=== PATIENT | male | born 1940 | race Caucasian/White ===

== ENCOUNTER 2020-04-01 10:18 | Outpatient (CLI) | payer MEDICARE, OTHER, SELFPAY ==
[2020-04-01 11:02] LABS: Blood Urea Nitrogen 28 mg/dL (9-20); Calcium 9.3 mg/dL (8.4-10.2); Carbon Dioxide 26 mmol/L (22-30); Chloride 107 mmol/L (98-107); Estimated Glomerular Filt Rate > 60; Glucose 144 mg/dL (75-110); Potassium 4.2 mmol/L (3.4-5.0); Sodium 139 mmol/L (137-145)
[2020-04-01 11:36] LABS: Hemoglobin A1C 6.2 % (<5.7)
== END 2020-04-01 10:19 | disposition home or self-care (01) ==
PROVIDERS: PCP Family Medicine; Visit Provider Family Medicine
DX: E11.9 Type 2 diabetes mellitus without complications (principal); I10 Essential (primary) hypertension
CPT/HCPCS: 36415; 80048; 83036

== ENCOUNTER 2020-05-16 09:49 | Outpatient (CLI) | payer MEDICARE, OTHER, SELFPAY | END 2020-05-16 09:50 | disposition home or self-care (01) | PROVIDERS: PCP Family Medicine | DX: C07 Malignant neoplasm of parotid gland (principal); Z08 Encounter for follow-up examination after completed treatment for malignant neoplasm; E03.2 Hypothyroidism due to medicaments and other exogenous substances | CPT/HCPCS: 36415; 84443 ==

== ENCOUNTER 2020-12-20 10:16 | Outpatient (CLI) | payer MEDICARE, OTHER, SELFPAY ==
[2020-12-20 10:49] LABS: Hematocrit 35.6 % (42.0-52.0); Hemoglobin 11.5 g/dL (14.0-18.0); Mean Corpuscular HGB Conc 32.3 g/dl (32-36); Mean Corpuscular Hemoglobin 27.1 pg (26-34); Mean Platelet Volume 8.8 fl (7.4-10.4); Platelet Count Result 174 k/mm3 (150-375); Red Blood Count 4.24 M/mm3 (4.6-6.20); White Blood Count 5.4 K/mm3 (4.5-10.0)
[2020-12-20 11:00] LABS: Alanine Aminotransferase 16 U/L (4-50); Albumin Level 3.7 g/dL (3.5-5.1); Alkaline Phosphatase 97 U/L (38-126); Anion Gap 6 mmol/L (8-16); Aspartate Amino Transferase 23 U/L (17-59); Blood Urea Nitrogen 24 mg/dL (9-20); Calcium 9.3 mg/dL (8.4-10.2); Carbon Dioxide 30 mmol/L (22-30); Chloride 106 mmol/L (98-107); Cholesterol 132 mg/dL (0-200); Estimated Glomerular Filt Rate > 60; Glucose 116 mg/dL (75-110); HDL Direct 36 mg/dL; Potassium 4.3 mmol/L (3.4-5.0); Sodium 142 mmol/L (137-145); Triglycerides 103 mg/dL (<150)
[2020-12-20 11:11] LABS: LDL Cholesterol Direct 68 mg/dL
[2020-12-20 11:23] LABS: Creatinine Urine 133.3 mg/dL
[2020-12-20 11:27] LABS: MALB Creatinine Ratio 12.6 mg/g (0-30); Microalbumin Urine Random 16.8 mg/L (0-16.7)
[2020-12-20 11:45] LABS: Hemoglobin A1C 5.9 % (<5.7)
== END 2020-12-20 10:17 | disposition home or self-care (01) ==
LOC: ANHLAB 10:21
PROVIDERS: PCP Family Medicine; Visit Provider Family Medicine
DX: E78.2 Mixed hyperlipidemia (principal); N28.9 Disorder of kidney and ureter, unspecified; I10 Essential (primary) hypertension; E11.29 Type 2 diabetes mellitus with other diabetic kidney complication
CPT/HCPCS: 36415; 80048; 80061; 80076; 82043; 83036; 84443; 85027

== ENCOUNTER 2021-02-27 10:58 | Outpatient (CLI) | payer MEDICARE, OTHER, SELFPAY ==
[2021-02-27 13:16] LABS: Prostate Specific Antigen 3.7 ng/mL (< OR = 4.0)
== END 2021-02-27 10:59 | disposition home or self-care (01) ==
PROVIDERS: PCP Family Medicine; Visit Provider Urology
DX: C61 Malignant neoplasm of prostate (principal)
CPT/HCPCS: 36415; 84153

== ENCOUNTER 2021-06-20 14:30 | Outpatient (RCR) | payer MEDICARE, OTHER, SELFPAY ==
--- NOTE | 2021-04-25 15:21 | PTOPEVAL ---
Thank you for referring Buzz Sr to [facility].? The patient is scheduled to be seen for therapy? 2 x/week for 6 weeks. Please review, sign, date and return this plan of care SKYE. I agree with and certify that the following plan of care is medically necessary. Referring Physician Date Attending Provider: See Dhaliwal MD Diagnosis osteoarthritis Onset chronic Additional Evaluation Detail He lives with his . 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 Use a cane for mobility in the house and will use a cart when at the store. Family assistance with household and yard wark. Subjective Information he reports decreased tolerance Query Text:As Reported By Patient/ with all activities, walking Family and household/yardwork activities due to pain and weakness. Reports he has severe chronic pain over his entire body. He spends most of his time at home sitting. Denies any falls in the past year. States he was moving better and performing more activities in 2019, but has had trouble standing and walking for the past 3 yrs. Previous Treatments Previous Treatments For This Problem no Pain Assessment Generalized Reported Pain Level 10 Pain Frequency Chronic Lowest Pain Intensity 10 Greatest Pain Intensity 10 Upper Extremity Range of Motion General Upper Extremity Range of Motion Gross Upper Extremity Range of Motion grossly 130 dg flex and abd Comments motion painful with all motions Lower Extremity Range of Motion General Lower Extremity Range of Motion Gross Lower Extremity Range of Motion right knee: -12-125 dg Comments left knee -10- 120 dg hip flex: 90 dg, limited by soft tissue Lower Extremity Muscle Strength Testing General Lower Extremity Strength Gross Lower Extremity Strength hip flex: 4-/5, hip abduction/ adduciton: 2+/5, hip ext: 3+/5 -full bridge with resistance knee ext: 4/5, flex: 4-/5 ( seated) Upper Extremity Muscle Strength Testing Scapular/Shoulder Left Shoulder Flexion Strength 3+ Fair + Shoulder Extension Strengt
--- NOTE | 2021-05-25 07:19 | PTOPEVAL ---
Physical Therapy Progress Note Thank you for referring Buzz Sr to [facility].?See summary below for detailed information on progress. Limited progress towards goals due to poor compliance with HEP and chronic impairments. The patient is scheduled to be seen for therapy? 1x/week for 4 weeks to progress and finalized home program.. Please review, sign, date and return this plan of care SKYE. I agree with and certify that the following plan of care is medically necessary. Referring Physician Date Attending Provider: See Dhaliwal MD Diagnosis osteoarthritis Onset chronic Additional Evaluation Detail He lives with his . 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 Use a cane for mobility in the house and will use a cart when at the store. Family assistance with household and yard wark. Subjective Information He cont to have ache pain in Query Text:As Reported By Patient/ his low back and knee pain. He Family is not consistently preforming his HEP. He does feel like he is able to walk slightly better. He was able to walk in the house without the cane for 40-50 ft. Reports the left shoulder is more ache. Pain Assessment Generalized Reported Pain Level 7 Pain Frequency Chronic Lowest Pain Intensity 6 Greatest Pain Intensity 10 Upper Extremity Range of Motion General Upper Extremity Range of Motion Gross Upper Extremity Range of Motion right and left flex 150 dg Comments and abd 140 dg motion painful with repeated movement, but not with single motion. Lower Extremity Muscle Strength Testing General Lower Extremity Strength Gross Lower Extremity Strength hip flex: 4/5, hip abduction/ adduciton: 2+/5, hip ext: 3+/5 -full bridge with resistance knee ext: 4+/5, flex: 4/5 ( seated) Upper Extremity Muscle Strength Testing Scapular/Shoulder Left Shoulder Flexion Strength 4- Good - Shoulder Abduction Strength 4- Good - Shoulder Medial Rotation Strength 4 Good Shoulder Lateral Rotation Strength 4 Good Right Shoulder Flexion Strength 3 Fair Shoulder Extension Strength 4- Good - Shoulder Abduction Strength 3 Fair Shoulder Medial Rotation Strength 3+ Fair + Shoulder Lateral Rotation Strength 3- Fair - Posture Standing Position Head/C-Spine Posture
--- NOTE | 2021-06-20 16:34 | PTOPEVAL ---
Physical Therapy Discharge Summary Thank you for referring Buzz Sr to [facility].? Buzz has received 14 therapy visits to address muscle weakness, chronic pain and functional limitations. He has not progress towards his therapy goals since his last therapy update. He has been provided a HEP with instruction to perform daily. He has achieved maximal potential with skilled therapy services at this time. Will DC skilled PT services. Please review, sign, date and return this discharge summary SKYE. I agree with and certify that the following plan of care is medically necessary. Referring Physician Date Attending Provider: See Dhaliwal MD Diagnosis osteoarthritis Onset chronic Additional Evaluation Detail He lives with his . 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 Use a cane for mobility in the house and will use a cart when at the store. Family assistance with household and yard wark. Subjective Information He performs some of his Query Text:As Reported By Patient/ exercises every day, but not Family all of the exercises. He cont to c/o constant pain at rest adn with activities. Pain Assessment Self Report Pain Assessment Generalized Reported Pain Level 7 Pain Frequency Chronic Upper Extremity Range of Motion General Upper Extremity Range of Motion Gross Upper Extremity Range of Motion right and left flex 135 dg Comments and abd 135 dg motion painful with repeated movement , but not with single motion. Lower Extremity Muscle Strength Testing General Lower Extremity Strength Gross Lower Extremity Strength hip flex: 3/5, hip abduction/adduciton: 3-/5, hip ext: 3+/5 standing knee ext: 4+/5, flex: 4+/5 ( seated) Balance Assessment Timed Up and Go Test (TUG) (Seconds) 18 Assistive Devices Cane, Straight Comments without cane: 20 sec 5 Time Sit to Stand Time in Seconds 45 5 Time Sit to Stand Comments use of UE and cane, no general Query Text:Normative Data: If Greater pain changes from 7/10 Than 15 Seconds, 74% Increase Risk for Recurrent Falls Gait Assessment Gait Pattern Antalgic Gait,Circumducted Gait,Shuffled Gait, Trendelenburg Gait Gait Pattern Observed Decreased Stride Length - Left ,Decreased Stride Length - Right,Excessive Knee Flex -
== END 2021-06-21 14:09 | disposition home or self-care (01) ==
LOC: ANHPT 14:30
PROVIDERS: PCP Family Medicine; Visit Provider Family Medicine
DX: M89.49 Other hypertrophic osteoarthropathy, multiple sites (principal)
CPT/HCPCS: 97110; 97112; 97116; 97162; 97530

== ENCOUNTER 2021-08-23 09:10 | Outpatient (CLI) | payer MEDICARE, OTHER, SELFPAY ==
--- NOTE | ~2021-08-23 | NM_ITS ---
NM bone scan whole body INDICATION: Malignant neoplasm of the prostate TECHNIQUE: The patient was injected with 24.2 mCi Tc 99m HDP. Gamma camera images of the region of i nterest and whole body were obtained. COMPARISON: Bone scan dated 04/08/2019 FINDINGS: There are multiple focal areas of increased uptake in the ribs, spine, pelvis and and femur s, consistent with osseous metastases. There is polyarticular uptake in the shoulders, wrists, hands, knees and ankles, consistent with degenerative joint disease. There is possible uptake in the humeru s bilaterally, suspicious for metastatic disease. IMPRESSION: 1: Interval development of multifocal uptake in the spine, ribs, pelvis, femurs and possibly the hum erus bilaterally, consistent with osseous metastases. Reviewed, dictated and finalized at location A. STRIAL RELATIONS OFFICER IMPRESSION: 1: Interval development of multifocal uptake in the spine, ribs, pelvis, femur s and possibly the humerus bilaterally, consistent with osseous metastases.
--- NOTE | ~2021-08-23 | CT_ITS ---
EXAMINATION: CT abdomen pelvis w con DATE: 08/23/2021 09:46 INDICATION: Malignant neoplasm of the prostate gland TECHNIQUE: Computed tomography (CT) of the abdomen and pelvis was performed with 100 cc Omnipaque 350 intravenous contrast. The dose-length product was 1466.69 mGy-cm. Automated exposure control and ite rative reconstruction technique were employed. COMPARISON: CT dated 04/24/2019. FINDINGS: There is a 1.4 cm left lower lobe nodule which appears new compared with prior examination. Heart size is normal. No significant pleural or pericardial effusion. Small hiatal hernia. The splee n, pancreas, adrenal glands are unremarkable. There are subtle subcentimeter hypodensities of the sofya er, most likely benign. Gallbladder is present. Nonobstructive bowel gas pattern. There are coarse pr ostate calcifications. Nonobstructive bowel gas pattern. There is mild osteoarthritis of the hips. Th ere is severe lumbar spondylosis. There is grade 1 degenerative spondylolisthesis at L5-S1. No focal lytic or blastic lesions. Gallbladder is present. IMPRESSION: 1. New 1.4 cm left lower lobe nodule, suspicious for malignancy. Recommend percutaneous biopsy or PET /CT scan. Reviewed, dictated and finalized at location A. LEADER IMPRESSION: 1. New 1.4 cm left lower lobe nodule, suspicious for malignancy. Recommend perc utaneous biopsy or PET/CT scan.
[2021-08-23 09:38] LABS: Estimated Glomerular Filt Rate > 60
== END 2021-08-23 09:11 | disposition home or self-care (01) ==
PROVIDERS: PCP Family Medicine; Visit Provider Urology
DX: C61 Malignant neoplasm of prostate (principal); R91.8 Other nonspecific abnormal finding of lung field
CPT/HCPCS: 74177; 78306; A9561; Q9967

== ENCOUNTER 2021-09-15 11:26 | Emergency (ER) | payer MEDICARE, OTHER, SELFPAY ==
--- NOTE | ~2021-09-15 | CT_ITS ---
EXAMINATION: CT brain wo con DATE: 09/15/2021 15:44 INDICATION: Dizziness TECHNIQUE: Computed tomography (CT) of the head was performed without intravenous contrast. The dose- length product was 681.00 mGy-cm. Automated exposure control and iterative reconstruction technique w ere employed. COMPARISON: None FINDINGS: No acute intracranial hemorrhage, infarction, mass or mass effect. There is intracranial at herosclerosis. Brain parenchymal volume is normal for age. There are scattered mild periventricular a nd subcortical white matter changes, most likely related to small vessel ischemic disease (microangio sandra). Basilar cisterns are patent. There is mild mucosal thickening of the left ethmoid air cells. Mastoids are pneumatized. No depressed skull fractures. IMPRESSION: 1. No acute intracranial abnormality. Reviewed, dictated and finalized at location A. ENCY COUNTER
--- NOTE | ~2021-09-15 | XR_ITS ---
XR chest 1V 09/15/2021 15:48 Indication: Weakness. Procedure: AP view of the chest Comparison: 06/29/2008 Findings: Cardiomegaly. No focal air space disease, pulmonary edema, pleural effusion or suspected pn eumothorax. No acute osseous abnormality. Impression: 1: No acute cardiopulmonary disease. 2: Cardiomegaly. Reviewed, dictated and finalized at location A. SPECIALIST Impression: 1: No acute cardiopulmonary disease. 2: Cardiomegaly.
[2021-09-15 11:31] VITALS: BP 133/49; PULSE 102; RESP 18; TEMP 37; O2SAT 97
[2021-09-15 13:44] VITALS: BP 105/56; PULSE 87; RESP 18; TEMP 37.2; O2SAT 96
--- NOTE | 2021-09-15 15:24 | ECG_ITS ---
Measurements Intervals [place] Rate: 73 P: 70 NE: 198 QRS: 7 QRSD: 94 T: 19 QT: 331 QTc: 366 Interpretive Statements SINUS RHYTHM ATRIAL PREMATURE COMPLEXES CONSIDER INFERIOR INFARCT, AGE INDETERMINATE BORDERLINE ST-T WAVE ABNORMALITY- ANTEROLATERAL LEADS ABNORMAL ECG Electronically Signed On 09-15-2021 20:09:31 HAIRSPRING SETTER by Zeus Tiwari D.O.
--- NOTE | 2021-09-15 15:30 | ED.WEAKNESS ---
HPI - Weakness General Chief complaint: Weakness Stated complaint: diarrhea Time Seen by Provider: 09/15/21 15:23 Source: patient Mode of arrival: ambulatory Limitations: no limitations History of Present Illness HPI Narrative: Patient is 80 years old white male lives with his and daughter came to the emergency room by private car complaining of general weakness tiredness longer hours sleep for the last few days. Patient had a recent diagnosis of prostatic cancer with bone metastasis. Possible lung metastasis. Patient is fully vaccinated for COVID-19. Patient denies any fever, chills, nausea, vomiting, diarrhea, constipation, urinary symptoms, chest pain or shortness of breath or headache. Related Data Home Medications Medication Instructions Recorded Confirmed furosemide 20 mg tablet 20 mg PO QAM 03/10/20 04/04/21 leuprolide (6 month) 45 mg (6 45 mg SUBCUT [id number] 04/04/21 04/04/21 month) subcutaneous syringe Allergies Allergy/AdvReac Type Severity Reaction Status Date / Time No Known Allergies Allergy Verified 04/04/21 09:41 Review of Systems Review of Systems: CONSTITUTIONAL: Denies fever, chills, or sweats. EYES: Denies visual changes, redness, or discharge. ENT: Denies rhinorrhea, congestion, sore throat, or otalgia. CARDIOVASCULAR: Denies chest pain, palpitations, or edema. RESPIRATORY: Denies cough or dyspnea. GASTROINTESTINAL: Denies abdominal pain, nausea, vomiting, or diarrhea. GENITOURINARY: Denies dysuria or hematuria. SKIN: Denies rash or itching. MUSCULOSKELETAL: Denies back pain, joint pain, or myalgia. NEUROLOGIC: Denies headache, numbness, or weakness. PSYCHIATRIC: Denies anxiety or depression. [facility] Past Medical History Medical History Body mass index [BMI] 36.0-36.9, adult Left leg DVT Osteoarthritis Squamous cell carcinoma of parotid Family History Family History Father Hypertension Cerebrovascular accident Patient's father is in good health Mother Hypertension Family history of heart disease in male family member before age 55 Other Diabetes mellitus Social History Social History Alcohol intake: never Course Course Emergency Course: Stable Vital Signs Vital signs: Vital Signs Temperature 37.0 C 09/15/21 11:31 Pulse Rate 102 H 09/15/21 11:31 Respiratory Rate 18 09/15/21 11:31 Blood Pressure 133/49 L 09/15/21 11:31 Pulse Oximetry 97 09/15/21 11:31 Temperature 37.2 C 09/15/21 13:44 Pulse Rate 87 09/15/21 13:44 Respiratory Rate 18 09/15/21 13:44 Blood Pressure 105/56 L 09/15/21 13:44 Pulse Oximetry 96 09/15/21 13:44 MDM - Weakness MDM Narrative Medical decision making narrative: Patient presents with general weakness. Had recent diagnosis of prostatic cancer with bone metastasis. Differential diagnosis as below. Work-up today showed no significant findings to explain patient condition. Early viral syndrome, depression could be the underlying cause of patient weakness. Differential Diagnosis Differential diagnosis: Likely hypoglycemia, dehydration and other (Coronary artery disease, pneumonia, urinary tract infection, electrolyte imbalance, viral syndrome, depression) Lab Data Result diagrams: 09/15/21 16:02 09/15/21 16:02 Labs: Lab Results 09/15/21 09/15/21 09/15/21 Range/Units 16:02 16:02 16:02 WBC 9.2 (4.5-10.0) K/mm3 RBC 3.99 L (4.6-6.20) M/mm3 Hgb 10.2 L (14.0-18.0) g/dL Hct 32.1 L (42.0-52.0) % MCV 80.5 (80-100) fl MCH 25.6 L (26-34) pg MCHC 31.8 L (32-36) g/dl RDW 15.9 H (11.5-14.5) % Plt Count 258 (150-375) k/mm3 MPV 8.5 (7.4-10.4) fl Immature Gran % (Auto) 0.7 H (0-0.5) % Neut % (Auto) 81.2 H (45.5-73.1) % Lymph % (Auto) 10.4 L (18.3-44.2) % Loving % (Auto) 7.5
[2021-09-15 16:08] LABS: Basophils Percent Auto 0.2 % (0.2-1.2); Hematocrit 32.1 % (42.0-52.0); Hemoglobin 10.2 g/dL (14.0-18.0); Immature Granulocyte Absolute 0.06 K/mm3 (0.00-0.031); Immature Granulocyte Percent A 0.7 % (0-0.5); Lymphocytes Absolute Auto 0.96 K/mm3 (0.9-3.2); Lymphocytes Percent Auto 10.4 % (18.3-44.2); Mean Corpuscular HGB Conc 31.8 g/dl (32-36); Mean Corpuscular Hemoglobin 25.6 pg (26-34); Mean Corpuscular Volume 80.5 fl (80-100); Mean Platelet Volume 8.5 fl (7.4-10.4); Monocytes Absolute Auto 0.7 K/mm3 (0.1-0.6); Monocytes Percent Auto 7.5 % (2.6-8.5); Neutrophils Absolute Auto 7.5 K/mm3 (1.3-6.7); Neutrophils Percent Auto 81.2 % (45.5-73.1); Platelet Count Result 258 k/mm3 (150-375); Red Blood Count 3.99 M/mm3 (4.6-6.20); Red Cell Distribution Width 15.9 % (11.5-14.5); White Blood Count 9.2 K/mm3 (4.5-10.0)
[2021-09-15 16:30] LABS: Troponin I 0.028 ng/mL (0.000-0.034)
[2021-09-15 16:43] LABS: Add Urine Microscopic? YES; Appearance Urine Clear (Clear); Bilirubin Urine Negative (Negative); Blood Urine Negative (Negative); Color Urine Yellow (Yellow); Glucose Urine UA Negative (Negative); Ketones Urine Negative (Negative); Leukocyte Esterase Ur Negative LEU/UL (Negative); Mucus Urine Rare /lpf; Nitrate Urine Negative (Negative); Protein Urine 1+ mg/dL (Negative); RBC Urine 0-2 /hpf (0-2); Specific Grav Ur 1.015 (1.001-1.035); Squamous Epithelial Cell Urine Rare /hpf (Few); Urobilinogen Urine Negative mg/dL (<2.0); WBC Urine 0-3 /hpf
[2021-09-15 16:56] LABS: Alanine Aminotransferase 15 U/L (4-50); Albumin Level 3.9 g/dL (3.5-5.1); Alkaline Phosphatase 184 U/L (38-126); Anion Gap 11 mmol/L (8-16); Aspartate Amino Transferase 41 U/L (17-59); Bilirubin,Total 1.4 mg/dL (0.2-1.3); Blood Urea Nitrogen 21 mg/dL (9-20); CRP 8.5 mg/dL (<1.0); Calcium 9.4 mg/dL (8.4-10.2); Carbon Dioxide 23 mmol/L (22-30); Chloride 102 mmol/L (98-107); Estimated CRCL calculation 72 ml/min; Estimated Glomerular Filt Rate > 60; Glucose 181 mg/dL (65-110); Potassium 3.7 mmol/L (3.4-5.0); Sodium 136 mmol/L (137-145)
[2021-09-15 18:05] VITALS: BP 132/65; PULSE 77; RESP 17; O2SAT 97
[2021-09-15 18:59] VITALS: BP 140/69; PULSE 73; RESP 16; O2SAT 98
== END 2021-09-15 19:00 | disposition home or self-care (01) ==
PROVIDERS: Emergency Provider Emergency Medicine; PCP Family Medicine
DX: R53.1 Weakness (principal); C61 Malignant neoplasm of prostate; C79.51 Secondary malignant neoplasm of bone; M19.90 Unspecified osteoarthritis, unspecified site; Z86.718 Personal history of other venous thrombosis and embolism
CPT/HCPCS: 36415; 51701; 70450; 71045; 80053; 81001; 84484; 85025; 86140; 93005; 99284

== ENCOUNTER 2021-09-29 13:35 | Outpatient (CLI) | payer MEDICARE, OTHER, SELFPAY ==
[2021-09-29 14:07] LABS: Hematocrit 32.6 % (42.0-52.0); Hemoglobin 9.8 g/dL (14.0-18.0); Immature Reticulocyte Fraction 14.6 % (3.0-15.9); Mean Corpuscular HGB Conc 30.1 g/dl (32-36); Mean Corpuscular Hemoglobin 24.7 pg (26-34); Mean Corpuscular Volume 82.1 fl (80-100); Mean Platelet Volume 8.8 fl (7.4-10.4); Platelet Count Result 325 k/mm3 (150-375); Red Blood Count 3.97 M/mm3 (4.6-6.20); Red Cell Distribution Width 15.7 % (11.5-14.5); Reticulocyte Hemoglobin Conten 25.6 pg (28.2-35.7); Reticulocyte Percent 1.16 % (0.7-4.3); Reticulocytes Absolute 0.05 B/L (32.2-175.7)
[2021-09-29 16:34] LABS: Iron 30 ug/dL (49-181)
[2021-09-29 16:39] LABS: Alanine Aminotransferase 34 U/L (4-50); Albumin Level 3.8 g/dL (3.5-5.1); Alkaline Phosphatase 177 U/L (38-126); Anion Gap 7 mmol/L (8-16); Aspartate Amino Transferase 37 U/L (17-59); Bilirubin,Total 0.7 mg/dL (0.2-1.3); Blood Urea Nitrogen 25 mg/dL (9-20); Calcium 9.6 mg/dL (8.4-10.2); Carbon Dioxide 30 mmol/L (22-30); Chloride 99 mmol/L (98-107); Estimated Glomerular Filt Rate > 60; Glucose 120 mg/dL (65-110); Lactate Dehydrogenase 451 U/L (313-618); Sodium 136 mmol/L (137-145)
[2021-09-29 16:44] LABS: Percent Iron Saturation 11 % (20-50)
[2021-09-30 12:21] LABS: Folic Acid 10.2 ng/mL (2.76->20)
== END 2021-09-29 13:36 | disposition home or self-care (01) ==
LOC: ANHLAB 13:43
PROVIDERS: PCP Family Medicine; Visit Provider Internal Medicine Hematology & Oncology
DX: D64.9 Anemia, unspecified (principal)
CPT/HCPCS: 36415; 80053; 82607; 82728; 82746; 83540; 83550; 83615; 85027; 85046

== ENCOUNTER → 2021-10-16 01:01 | Outpatient (CLI) | payer MEDICARE, OTHER, SELFPAY ==
[2021-10-16 21:23] LABS: SARS-CoV-2 RNA PCR Negative
== END ==
PROVIDERS: PCP Family Medicine; Visit Provider Internal Medicine Hematology & Oncology
DX: Z01.812 Encounter for preprocedural laboratory examination (principal); Z20.822 Contact with and (suspected) exposure to COVID-19
CPT/HCPCS: C9803; U0003; U0005

== ENCOUNTER 2021-10-19 16:10 | Outpatient (CLI) | payer MEDICARE, OTHER, SELFPAY ==
--- NOTE | ~2021-10-19 | CT_ITS ---
EXAMINATION: CT diagnostic chest w con EXAM DATE: 10/19/2021 16:51 INDICATION: Lung nodule. TECHNIQUE: Spiral CT of the chest following intravenous injection of 75 mL Omnipaque 350. Axial, cor onal and sagittal images of the chest were reviewed. Coronal maximum intensity pixel images of chest reviewed. The dose-length product (DLP) for this examination was 690.96 mGy-cm. The exposure was t ailored according to patient size (auto mA exposure control), and iterative reconstruction (ASIR) was used as additional dose reduction technique. Correlation is made to CT abdomen pelvis from . FINDINGS: Left lower lobe posteromedial nodule has increased in size, measuring 1.8 x 1.3 cm (previo usly 1.3 x 1.1 cm). This is lung cancer until proven otherwise; CT-guided biopsy recommended. No cent ral pulmonary emboli. There are no pleural or pericardial effusions. Tracheobronchial tree is hemphill nt. There is no mediastinal, hilar or axillary lymphadenopathy. There is no pneumothorax. The ma in, central pulmonary arteries are dilated which can indicate elevated pulmonary arterial pressure, p ulmonary arterial hypertension. Heart normal in size. There is mild to moderate coronary arterial calcification, arterial sclerosis. There is mild emphysema. There is small sliding gastroesophageal h iatal hernia. There is thoracic spondylosis without osteoblastic or osteolytic lesions identified. IMPRESSION: Enlarging left lower lobe nodule most consistent with primary lung cancer; CT-guided perc utaneous biopsy indicated. Reviewed, dictated and finalized at location A. FREIGHT CONDUCTOR IMPRESSION: Enlarging left lower lobe nodule most consistent with primary lung cancer; CT-guided percutaneous biopsy indicated.
== END 2021-10-19 16:11 | disposition home or self-care (01) ==
LOC: ANHIMG 16:17
PROVIDERS: PCP Family Medicine; Visit Provider Internal Medicine Hematology & Oncology
DX: R91.1 Solitary pulmonary nodule (principal)
CPT/HCPCS: 71260; Q9967

== ENCOUNTER 2021-10-20 03:12 | Outpatient (CLI) | payer MEDICARE, OTHER, SELFPAY ==
[2021-10-18 12:42] VITALS: BMI 37.6
--- NOTE | 2021-10-18 12:58 | PC.NURSE ---
Report to the Outpatient Waiting Room, entrance under the green pavilion located off [facility], at time __0900 on date ___10/20/21____. OR Time: ___1100 . - You and your visitor will be asked a series of questions to screen for COVID 19 for your protection. - A mask is required within the hospital. - NO visitors not allowed at this time. Patient visitors will be guided where to wait when not with patient. Preoperative COVID Testing Requirements: No COVID Test needed if: (proof is required; if not received patient will have Rapid Test prior to entry) - Patient has received COVID Vaccine at least 14 days prior to procedure date or - Patient has positive COVID test result within last 90 days of surgery date. COVID Test needed if above criteria is not met If not COVID vaccinated a COVID test must be conducted within 72 hours of surgery and patient is asked to isolate self from time of testing until procedure. You will go to the [facility] for your COVID testing. The [facility] site is located at the corner of [address] [facility]. You will only be called if COVID results are positive and your surgeon may reschedule your elective surgery date. - No food/FLUIDS from 0500 AM until time of surgery - Infants may have breast milk until 4 hours before surgery, infant formula 6 hours prior to surgery. - Children will be allowed to drink immediately following surgery. If applicable, please bring a bottle or sippy cup to assist with drinking. Juice, water, soda, and popsicles are readily available. For infants on formula, please bring formula the day of surgery. Pacifiers are allowed. Take the following medications with a SIP of water the morning of surgery:__HOME MEDS SCHEDULED Medications to discontinue per physician __OMER - PT STATES LAST DOSE 10/17/21 PER [facility] Date to take last dose Please no make-up, nail [place] citizen, hairspray, perfume, deodorant, or body powder the day of surgery. No jewelry (including any body piercings) or valuables the day of surgery, leave them at home. Please take a shower or bath the night before, or the morning of, surgery with an antibacterial soap. Wear comfortable, loose fitting clothing. Children are encouraged to wear pajamas. - Jewelry must be removed prior to entering the operating room. Rings and piercings that are not removed may be cut off. - The hospital will not accept responsibility for valuables. - Please leave all valuables, including medications, at home the day of surgery. If you are going home after surgery, a licensed skip load driver must drive you home. - NO public transportation without another adult. - We recommend that an adult stay with you for 24 hours following discharge. - We also recommend that you do not drive, make important decision, drink alcoholic beverages, or take any drugs that were not prescribed by your health care provider for at least 24 hours after your discharge time. For Pediatric surgeries, we recommend two adults accompany the child home (only one inside the building at this time). Follow any additional instructions given to you from your surgeon. Telephone instructions given to ___PT and asked if any additional questions and then verbalized understanding. Patient advised to call surgeon office or pre surgery nurse liaison [phone] if any additional questions.
[2021-10-20] VITALS (10 sets, daily range): BP systolic 105–127; BP diastolic 46–66; PULSE 50–59; RESP 16–18; TEMP 36.2; O2SAT 95–100
--- NOTE | ~2021-10-20 | XR_ITS ---
EXAMINATION: XR chest 1V DATE: 10/20/2021 10:59 INDICATION: Left lung nodule status post percutaneous biopsy. TECHNIQUE: A single frontal view of the chest was obtained. COMPARISON: Chest single view 09/15/21, chest CT 10/19/2021 FINDINGS: There is mild atelectasis versus scarring at the lung bases. There is a nodule in left lowe r lobe. No pleural effusion. There is a small left pneumothorax. Cardiomegaly is noted. IMPRESSION: 1. Small left pneumothorax. 2. Nodule in left lower lobe suspicious for malignancy. 3. Mild atelectasis versus scarring at the lung bases. 4. Cardiomegaly. Reviewed, dictated and finalized at location A. MAINTENANCE WORKER
--- NOTE | ~2021-10-20 | XR_ITS ---
EXAMINATION: XR chest 1V portable DATE: 10/20/2021 12:19 INDICATION: Left lung nodule status post percutaneous biopsy. TECHNIQUE: A single frontal view of the chest was obtained. COMPARISON: Chest single view at 1058 AM FINDINGS: There is a nodule in left lower lobe. There are reticular opacities at the lung bases, cons istent with mild atelectasis versus scarring. No pleural effusion. There is a small left apical pneum othorax. Cardiomegaly is noted. IMPRESSION: 1. Nodule in left lung lower lobe suspicious for malignancy. 2. Improved small left pneumothorax. 3. Cardiomegaly. Reviewed, dictated and finalized at location A. MAKER FLOOR
--- NOTE | ~2021-10-20 | CT_ITS ---
EXAMINATION: CT biopsy lung w/imaging DATE: 10/20/2021 11:01 INDICATION: Left lung nodule. TECHNIQUE: The procedure including the risks, benefits, and alternatives and possibility of chest tub e placement were discussed with the patient. Risks discussed included infection, approximately 1/20 r isk of symptomatic hemorrhage beyond mild hemoptysis, approximately 1/3 risk of pneumothorax, approxi mately 1/10 risk of pneumothorax severe enough to warrant chest tube placement, and rarely . The patient understood the risks and agreed to proceed. The patient was placed prone. The skin overlyin g the left chest was prepped and draped in sterile fashion. Anesthetic was administered with 1% lido cary subcutaneously. A 19 gauge outer needle was advanced under CT guidance to the lesion of intere st. A 20 gauge core biopsy needle was then used to obtain 3 core biopsy specimens. The needle was rem jasmyn and the entry site was cleaned and dressed. The mA was adjusted according to patient size. Itera tive reconstruction technique was employed. The dose-length product was 175.76 mGy-cm. There were no immediate complications. FINDINGS: CT images demonstrate the outer needle tip adjacent to a 1.7 cm nodule in left lung lower l obe. IMPRESSION: 1. CT-guided core needle biopsy of a 1.7 cm nodule in left lung lower lobe. Reviewed, dictated and finalized at location A. EMS SOFTWARE SPECIALIST
--- NOTE | ~2021-10-20 | XR_ITS ---
EXAMINATION: XR chest 1V portable DATE: 10/20/2021 14:01 INDICATION: Lung nodule status post percutaneous biopsy. TECHNIQUE: A single frontal view of the chest was obtained. COMPARISON: Chest single view at 11:43 AM FINDINGS: There is mild atelectasis versus scarring in the lower lung zones. No pleural effusion. The re is a small left apical pneumothorax. Cardiomegaly is noted. IMPRESSION: 1. Stable small left pneumothorax. 2. Mild atelectasis versus scarring in the lower lung zones. 3. Cardiomegaly. Reviewed, dictated and finalized at location A. TY CONSULTANT
[2021-10-20 09:40] LABS: Mean Platelet Volume 8.5 fl (7.4-10.4); Platelet Count Result 295 k/mm3 (150-375)
[2021-10-20 09:46] LABS: Prothrombin Time 12.6 Seconds (11.1-14.7)
[2021-10-20 11:19] LABS: Glucose Point of Care 116 mg/dl (65-105)
[2021-10-20] MEDS: ACETAMINOPHEN 325 MG TABLET 650 MG PO (13:00)
--- NOTE | 2021-10-20 18:01 | SUR.PHASEII ---
Dr. Amaya came to bedside after 1400 x-ray and told RN patient was good to discharge home.
== END 2021-10-20 14:34 | disposition home or self-care (01) ==
PROVIDERS: Radiology Diagnostic Radiology; PCP Family Medicine; Visit Provider Internal Medicine Hematology & Oncology
PROC: BB24ZZZ Computerized Tomography (CT Scan) of Bilateral Lungs (ICD-10-PCS; CPT 32408; principal; 2021-10-20 11:00)
DX: C34.32 Malignant neoplasm of lower lobe, left bronchus or lung (principal); J93.9 Pneumothorax, unspecified; I51.7 Cardiomegaly
CPT/HCPCS: 32408; 36415; 71045; 82948; 85049; 85610; 88271; 88274; 88275; 88305; 88342; 88360; A9270

== ENCOUNTER 2021-10-31 12:07 | Outpatient (CLI) | payer MEDICARE, OTHER, SELFPAY ==
--- NOTE | ~2021-10-31 | PE_ITS ---
EXAMINATION: PET skull to mid thigh DATE: 10/31/2021 14:05 INDICATION: Lung nodule. Prostate cancer. TECHNIQUE: Blood glucose level was 150 mg/dL. 10.495 mCi of 18-fluorodeoxyglucose (18-FDG) was admini stered i.v. Low dose computed tomography (CT) images were acquired from the base of the brain to the proximal thighs for attenuation correction and anatomic localization. Automated exposure control was employed. Dose-length product (DLP) was 1167 mGy-cm. Positron emission tomography (PET) images were a cquired in the same distribution. COMPARISON: Chest CT 10/19/2021, CT abdomen and pelvis 08/23/2021 FINDINGS: Head/neck: There are surgical changes of right neck. There is increased activity in the oral cavity a nd glottis without abnormal CT correlate, likely physiologic. There are no pathologically enlarged ly mph nodes. Chest: There is mild scarring at the lung apices. There is a 1.8 cm nodule in left lung lower lobe wi th maximum SUV of 1.8. There are trace pleural effusions. Cardiomegaly is noted. There are coronary a rtery calcifications. No pericardial effusion. There are mixed lytic and sclerotic lesions of bone wi th increased activity. Abdomen/pelvis/proximal thighs: The liver, spleen, gallbladder, pancreas, adrenal glands, and left ki dney are normal. There is a 2.5 cm cyst in right kidney. There are no dilated loops of bowel. There a re no pathologically enlarged lymph nodes. There is no free intraperitoneal fluid. There are scattere d mixed lytic and sclerotic lesions of bone with increased activity. IMPRESSION: 1. 1.8 cm nodule in left lung lower lobe with maximum SUV of 1.8. Biopsy on 10/20/2021 demonstrated at ypical spindle cell proliferation. 2. Scattered mixed lytic and sclerotic lesions of bone with increased activity, consistent with metas tatic disease. Note that the CT appearance would not be typical of prostate cancer. Reviewed, dictated and finalized at location A. TOOLER IMPRESSION: 1. 1.8 cm nodule in left lung lower lobe with maximum SUV of 1.8. Biopsy on 10/20 demonstrated atypical spindle cell proliferation. 2. Scattered mixed lytic and sclerotic lesions of bone with increased activity, consistent with metastatic disease. Note that the CT appearance would not be t ypical of prostate cancer.
[2021-10-31 12:34] LABS: Glucose Point of Care 156 mg/dl (65-105)
== END 2021-10-31 12:08 | disposition home or self-care (01) ==
LOC: ANHIMG 12:16
PROVIDERS: PCP Family Medicine; Visit Provider Internal Medicine Hematology & Oncology
DX: C61 Malignant neoplasm of prostate (principal); R91.1 Solitary pulmonary nodule
CPT/HCPCS: 78815; A9552

== ENCOUNTER 2021-11-23 11:10 | Outpatient (NON) | payer MEDICARE, OTHER, SELFPAY | END 2021-11-23 11:11 | disposition home or self-care (01) | LOC: ANHLAB 11:20 | PROVIDERS: PCP Family Medicine; Visit Provider Internal Medicine Hematology & Oncology | DX: D49.2 Neoplasm of unspecified behavior of bone, soft tissue, and skin (principal) | CPT/HCPCS: 88321 ==

== ENCOUNTER 2021-11-27 12:05 | Outpatient (CLI) | payer MEDICARE, OTHER, SELFPAY ==
[2021-11-27 12:25] LABS: Basophils Percent Auto 0.1 % (0.2-1.2); Eosinophils Percent Auto 0.1 % (0-4.4); Hematocrit 31.8 % (42.0-52.0); Hemoglobin 9.8 g/dL (14.0-18.0); Immature Granulocyte Absolute 0.05 K/mm3 (0.00-0.031); Immature Granulocyte Percent A 0.5 % (0-0.5); Lymphocytes Absolute Auto 1.49 K/mm3 (0.9-3.2); Lymphocytes Percent Auto 16.2 % (18.3-44.2); Mean Corpuscular HGB Conc 30.8 g/dl (32-36); Mean Corpuscular Hemoglobin 24.4 pg (26-34); Mean Corpuscular Volume 79.3 fl (80-100); Mean Platelet Volume 8.5 fl (7.4-10.4); Monocytes Absolute Auto 0.8 K/mm3 (0.1-0.6); Monocytes Percent Auto 9.1 % (2.6-8.5); Neutrophils Absolute Auto 6.8 K/mm3 (1.3-6.7); Platelet Count Result 379 k/mm3 (150-375); Red Blood Count 4.01 M/mm3 (4.6-6.20); White Blood Count 9.2 K/mm3 (4.5-10.0)
[2021-11-27 12:28] LABS: Blood Urea Nitrogen 25 mg/dL (8-26); Carbon Dioxide 23 mmol/L (22-30); Chloride 102 mmol/L (98-109); Estimated Glomerular Filt Rate > 60; Glucose 170 mg/dL (70-105); Potassium 3.8 mmol/L (3.5-4.9); Sodium 139 mmol/L (138-146)
== END 2021-11-27 12:06 | disposition home or self-care (01) ==
LOC: ANHLAB 12:07
PROVIDERS: PCP Family Medicine; Visit Provider Internal Medicine Hematology & Oncology
DX: C61 Malignant neoplasm of prostate (principal)
CPT/HCPCS: 36415; 80048; 85025

== ENCOUNTER 2021-12-13 10:52 | Outpatient (CLI) | payer MEDICARE, OTHER, SELFPAY ==
--- NOTE | ~2021-12-13 | CT_ITS ---
EXAMINATION: CT biopsy bone superficial DATE: 12/13/2021 12:12 INDICATION: Prostate cancer metastatic to bone. TECHNIQUE: The procedure including the risks, benefits, and alternatives was discussed with the patie nt. Risks discussed included bleeding and infection. The patient verbalized understanding of the risk s and agreed to proceed. The skin overlying the right ilium was prepped and draped in usual sterile fashion. Anesthetic was administered with 1% lidocaine subcutaneously. An 11-gauge bone biopsy need le was advanced under CT guidance into the right posterior superior iliac spine to obtain 3 core biop sy specimens. The mA was adjusted according to patient size. Iterative reconstruction technique was e mployed. The dose-length product was 250.67 mGy-cm. The needle was removed and the entry site was meche aned and dressed. There were no immediate complications. FINDINGS: CT images demonstrate the needle tip in a sclerotic lesion in right posterior superior lolly c spine. IMPRESSION: 1. CT-guided core needle biopsy of a sclerotic lesion in right posterior superior iliac spine. Reviewed, dictated and finalized at location A. TRICIAN JOURNEYMAN WIREMAN IMPRESSION: 1. CT-guided core needle biopsy of a sclerotic lesion in right posterior super ior iliac spine.
[2021-12-13 12:09] VITALS: BP 156/90; PULSE 92; RESP 16; O2SAT 98
[2021-12-13 12:11] VITALS: BP 168/96; PULSE 85; RESP 18; O2SAT 99
== END 2021-12-13 10:53 | disposition home or self-care (01) ==
LOC: ANHIMG 10:56
PROVIDERS: PCP Family Medicine; Visit Provider Internal Medicine Hematology & Oncology
DX: C61 Malignant neoplasm of prostate (principal); C79.51 Secondary malignant neoplasm of bone
CPT/HCPCS: 20220; 77012; 88307; 88311; 88342

== ENCOUNTER 2021-12-29 09:00 | Emergency (ER) | payer MEDICARE, OTHER, SELFPAY ==
[2021-12-29] VITALS (12 sets, daily range): BP systolic 106–158; BP diastolic 56–99; PULSE 75–130; RESP 16–28; TEMP 36.7–36.8; O2SAT 96–100
--- NOTE | ~2021-12-29 | XR_ITS ---
EXAMINATION: XR chest 2V DATE: 12/29/2021 09:31 INDICATION: Weakness. TECHNIQUE: Frontal and lateral views of the chest were obtained. COMPARISON: Chest single view 10/20/21, PET/CT 10/31/2021 FINDINGS: This is a nodule in left lower lobe. There is mild atelectasis in the lower lung zones. No pleural effusion or pneumothorax. Cardiomegaly is noted. IMPRESSION: 1. Nodule in left lung lower lobe. Biopsy on 10/20/2021 demonstrated atypical spindle cell proliferati on. 2. Mild atelectasis in the lower lung zones. 3. Cardiomegaly. Reviewed, dictated and finalized at location A. IMPRESSION: 1. Nodule in left lung lower lobe. Biopsy on 10/20/2021 demonstrated atypical sp indle cell proliferation. 2. Mild atelectasis in the lower lung zones. 3. Cardiomegaly.
--- NOTE | 2021-12-29 09:08 | ECG_ITS ---
Measurements Intervals [place] Rate: 122 P: [place]: 0 QRS: -8 QRSD: 88 T: 20 QT: 394 QTc: 563 Interpretive Statements BASELINE ARTIFACT PRESENT SINUS TACHYCARDIA WITH FIRST-DEGREE AV BLOCK CONSIDER INFERIOR MYOCARDIAL INFARCTION , PROBABLY OLD [40+ ms Q WAVE AND/OR ST/T ABNORMALITY IN II/aVF] COMPARED TO ECG 09/15/2021 18:03:48 INCREASED HEART RATE Electronically Signed On 12-29-2021 16:08:04 CDT by Dieter Burks M.D.
[2021-12-29 09:31] LABS: Basophils Percent Auto 0.1 % (0.2-1.2); Hemoglobin 10.6 g/dL (14.0-18.0); Immature Granulocyte Absolute 0.07 K/mm3 (0.00-0.031); Immature Granulocyte Percent A 0.8 % (0-0.5); Lymphocytes Percent Auto 8.6 % (18.3-44.2); Mean Corpuscular HGB Conc 31.2 g/dl (32-36); Mean Corpuscular Hemoglobin 24.3 pg (26-34); Mean Corpuscular Volume 77.8 fl (80-100); Monocytes Absolute Auto 0.9 K/mm3 (0.1-0.6); Monocytes Percent Auto 9.3 % (2.6-8.5); Neutrophils Absolute Auto 7.5 K/mm3 (1.3-6.7); Neutrophils Percent Auto 81.2 % (45.5-73.1); Platelet Count Result 278 k/mm3 (150-375); Red Blood Count 4.37 M/mm3 (4.6-6.20); Red Cell Distribution Width 17.8 % (11.5-14.5); White Blood Count 9.3 K/mm3 (4.5-10.0)
[2021-12-29 09:55] LABS: Albumin Level 3.5 g/dL (3.5-5.1); Alkaline Phosphatase 269 U/L (38-126); Anion Gap 7 mmol/L (8-16); Aspartate Amino Transferase 171 U/L (17-59); Bilirubin,Total 1.3 mg/dL (0.2-1.3); Blood Urea Nitrogen 20 mg/dL (9-20); Calcium 8.9 mg/dL (8.4-10.2); Carbon Dioxide 21 mmol/L (22-30); Chloride 107 mmol/L (98-107); Estimated CRCL calculation 72 ml/min; Estimated Glomerular Filt Rate > 60; Glucose 188 mg/dL (65-110); Potassium 3.8 mmol/L (3.4-5.0); Sodium 135 mmol/L (137-145)
[2021-12-29 09:59] LABS: Alanine Aminotransferase 17 U/L (4-50)
[2021-12-29] MEDS: SODIUM CHLORIDE 0.9% IV 1,000 ML 999 ML IV CONT ×2 (11:03→15:12)
[2021-12-29 11:13] LABS: Add Urine Microscopic? YES; Appearance Urine Clear (Clear); Bilirubin Urine Negative (Negative); Blood Urine Negative (Negative); Color Urine Yellow (Yellow); Glucose Urine UA Negative (Negative); Ketones Urine Negative (Negative); Leukocyte Esterase Ur Negative LEU/UL (Negative); Mucus Urine Rare /lpf; Nitrate Urine Negative (Negative); Protein Urine 1+ mg/dL (Negative); RBC Urine 0-2 /hpf (0-2); Specific Grav Ur 1.017 (1.001-1.035); Squamous Epithelial Cell Urine Rare /hpf (Few); Urobilinogen Urine Negative mg/dL (<2.0); WBC Urine 0-3 /hpf
[2021-12-29 13:00] LABS: Influenza A QL RT-PCR Negative (Negative); Influenza B QL RT-PCR Negative (Negative); SARS-CoV-2 RNA PCR Negative
--- NOTE | 2021-12-29 13:17 | ED.WEAKNESS ---
HPI - Weakness General Chief complaint: Weakness Stated complaint: weakness Time Seen by Provider: 12/29/21 09:22 History of Present Illness HPI Narrative: Patient is an 81-year-old female who presents to the ER with weakness. Reports he went to his toilet and then could not get himself up because his skin was stuck to the toilet. helped him up and then had to ease him to the floor. This happened twice. He did not strike his head or lose consciousness. Patient has 3 separate types of cancer that he is battling. He has been receiving radiation to his chest. He has no chest pain or chest pressure. No shortness of breath. She does not feel like he has a racing heartbeat. He has no urinary frequency urgency or dysuria. He is without diarrhea. No dark black stools. He does have subjective fevers and chills over the last 2 to 3 days. No known sick contacts. No runny nose or sore throat or productive cough. Related Data Home Medications Medication Instructions Recorded Confirmed furosemide 20 mg tablet 20 mg PO QAM PRN 03/10/20 12/19/21 leuprolide (6 month) 45 mg (6 45 mg SUBCUT [id number] 04/04/21 12/19/21 month) subcutaneous syringe diphenhydramine HCl [Benadryl 25 mg PO DAILY PRN 10/18/21 12/19/21 Allergy] enzalutamide [Xtandi] 160 mg PO HS 10/18/21 12/19/21 metformin 1,000 mg HS 10/18/21 12/19/21 Allergies Allergy/AdvReac Type Severity Reaction Status Date / Time No Known Allergies Allergy Verified 12/19/21 13:11 Review of Systems Review of Systems: All systems reviewed & are unremarkable except as noted in HPI and below Constitutional: Constitutional: Reports chills, Reports fatigue and Reports fever(s) ENT: Denies nasal congestion and Denies sore throat Cardiovascular: Cardiovascular: Denies chest pain, Denies rapid heart rate and Denies radiating jaw, neck or arm pain Respiratory: Respiratory: Denies cough, Denies dyspnea and Denies wheezing Gastrointestinal: Gastrointestinal: Denies abdominal pain, Denies nausea and Denies vomiting Musculoskeletal: Musculoskeletal: Denies back pain and Denies muscle cramps Neurologic: Denies syncope, Denies headache(s), Denies focal weakness, Denies numbness and Reports weakness PMFSH Past Medical History Medical History (Updated 12/29/21 @ 17:00 by Lawrence Johnson MD) BMI 31.0-31.9,adult BMI 32.0-32.9,adult BMI 34.0-34.9,adult Body mass index [BMI] 36.0-36.9, adult Left leg DVT Lumbar pain Metastatic adenocarcinoma to prostate Nodule of left lung Osteoarthritis Osteoarthritis of left knee Squamous cell carcinoma of parotid Family History Family History Father Hypertension Cerebrovascular accident Patient's father is in good health Mother Hypertension Family history of heart disease in male family member before age 55 Other Diabetes mellitus Social History Social History Smoking status: Former smoker Tobacco type: cigarettes Second hand tobacco smoke exposure: No Additional smoking assessment comments: smoked in his 20's and quit and in his 20's. Alcohol intake: never Substance use: never Substance use type: does not use Spiritual care concerns: No Exam Narrative: GENERAL: Well-appearing, well-nourished, and in no acute distress. HEAD: Normocephalic, atraumatic. ENT: Mucous membranes moist. CHEST: Clear to auscultation. No respiratory distress. HEART: Tachycardic and irregular. Appears to be sinus with PACs on monitor. Normal peripheral pulses. ABDOMEN: Soft, nontender, nondistended, normal active bowel sounds. EXTREMITIES: Normal range of motion. 1+ edema. SKIN: Warm, dry, no rash. NEURO: NAlert and oriented x3. PSYCH: Normal mood and affect. Course Course Emergency Course: Heart rate markedly improved with fluids. Patient is able to ambulate with a walker at his baseline which is just shuffling.
--- NOTE | 2021-12-29 15:13 | PC.NURSE ---
Late note. Pt was able to ambulate about 200feet per spouse Pt need assistance with getting off the bed per spouse this is the Pt's baseline with getting off bed, yet gait was steady with use of walker. Pt denies SOB, CP, N/V or dizziness with ambulation, Dr Godinez with Pt's status and ability Pt ambulation no orders received at 1300.
--- NOTE | 2021-12-29 15:40 | ECG_ITS ---
Measurements Intervals [place] Rate: 97 P: [place]: 0 QRS: 1 QRSD: 82 T: 31 QT: 360 QTc: 458 Interpretive Statements PROBABLE SINUS RHYTHM WITH FREQUENT PACS. ABNORMAL ECG Electronically Signed On 12-30-2021 9:19:44 CDT by Anselmo Conde M.D.
== END 2021-12-29 17:45 | disposition home or self-care (01) ==
PROVIDERS: Emergency Provider Emergency Medicine; PCP Family Medicine
DX: R53.1 Weakness (principal); E86.0 Dehydration; C79.82 Secondary malignant neoplasm of genital organs; C34.32 Malignant neoplasm of lower lobe, left bronchus or lung; Z20.822 Contact with and (suspected) exposure to COVID-19; M17.12 Unilateral primary osteoarthritis, left knee; Z85.828 Personal history of other malignant neoplasm of skin; Z87.891 Personal history of nicotine dependence; Z86.718 Personal history of other venous thrombosis and embolism; Z79.84 Long term (current) use of oral hypoglycemic drugs; I51.7 Cardiomegaly; R91.1 Solitary pulmonary nodule; I44.0 Atrioventricular block, first degree; R00.0 Tachycardia, unspecified; R94.31 Abnormal electrocardiogram [ECG] [EKG]
CPT/HCPCS: 36415; 71046; 80053; 81001; 85025; 87502; 93005; 96360; 96361; 99283; C9803; J7030; U0003; U0005

== ENCOUNTER 2022-03-03 08:50 | Emergency (ER) | payer MEDICARE, OTHER, SELFPAY ==
[2022-03-03] VITALS (37 sets, daily range): BP systolic 81–124; BP diastolic 51–75; PULSE 89–129; RESP 15–32; TEMP 36.6; O2SAT 92–100
--- NOTE | ~2022-03-03 | XR_ITS ---
EXAMINATION: XR chest 1V portable DATE: 03/03/2022 11:19 INDICATION: Shortness of breath and pitting edema TECHNIQUE: frontal view of the chest was obtained. COMPARISON: Chest radiograph dated 12/29/21 FINDINGS: New large unilateral left pleural effusion with opacification of the left mid to lower lung zones. Th is results in some rightward shift of the heart and mediastinum. No airspace opacities, pulmonary maria g ma or pleural effusion in the right lung. No pneumothorax. Heart size was normal on immediately prior chest CT is difficult to assess on the current radiograph due to obscuration of the left heart je shelley IMPRESSION: 1. Large left pleural effusion. 2. Compensatory atelectasis in the left mid to lower lung zone cannot exclude underlying pneumonia or malignancy. Reviewed, dictated and finalized at location A. IMPRESSION: 1. Large left pleural effusion. 2. Compensatory atelectasis in the left mid to lower lung zone cannot exclude u nderlying pneumonia or malignancy.
--- NOTE | ~2022-03-03 | CT_ITS ---
EXAMINATION: CTA chest PE protocol DATE: 03/03/2022 09:59 INDICATION: 3 days of shortness of breath and cough TECHNIQUE: Computed tomography (CT) pulmonary angiogram of the chest was performed with 100 mL Omnipa que-350 intravenous contrast. Additional 3D reconstructions utilizing coronal maximum intensity proje ction (MIP) were performed. Automated exposure control and iterative reconstruction technique were em ployed. The dose-length product was 872.47 mGy-cm. COMPARISON: 10/19/2021 FINDINGS: Good but suboptimal contrast opacification of the pulmonary arteries. There is mild streak artifact f rom dense contrast in the superior vena cava and right atrium. Severe respiratory motion artifact whi ch significantly decreases sensitivity in the segmental and subsegmental pulmonary arteries. No centr al pulmonary embolism through the lobar pulmonary arteries with assessment in the smaller more periph eral pulmonary arteries essentially nondiagnostic. New large left pleural effusion with collapse of t he left lower lobe and additional atelectasis in the dependent lingula and left upper lobe. There mae ears to be subtle nodular soft tissue density at the posterolateral aspect of the pleural effusion wh ich is without correlate on the CT study from 4 months prior which argues against neoplasm and sugges ts possible hemothorax with clot. Tiny right pleural effusion. Small wedge-shaped groundglass opacity at the posterolateral aspect of the right upper lobe which could represent atelectasis, pneumonia or pulmonary infarct. Cardiomegaly with mild rightward shift of the heart and mediastinum resulting fro m the large left pleural effusion. No pericardial effusion. Thoracic aorta is normal in caliber with no dissection. No pathologically enlarged thoracic lymphadenopathy. Visualized upper abdomen is unrem arkable. There are mixed lytic and sclerotic bone lesions in the spine, sternum and a few ribs consis tent with previously biopsy-proven metastatic prostate cancer. IMPRESSION: 1. No central pulmonary embolism through the lobar pulmonary arteries. More peripheral assessment is nondiagnostic due to in part to suboptimal contrast opacification but primarily due to large amount o f respiratory motion. 2. Complex large left pleural effusion, likely hemothorax, with rightward shift of the heart and medi astinum. 3. Collapse of the left lower lobe with atelectasis in the left upper lobe and lingula. 4. Small peripheral wedge-shaped groundglass opacity in the right upper lobe which could represent at electasis, pneumonia or pulmonary infarct. 5. Scattered lytic and blastic bone lesions consistent with previously biopsy-proven metastatic prost ate cancer. Reviewed, dictated and finalized at location A. IMPRESSION: 1. No central pulmonary embolism through the lobar pulmonary arteries. More per ipheral assessment is nondiagnostic due to in part to suboptimal contrast opaci fication but primarily due to large amount of respiratory motion. 2. Complex large left pleural effusion, likely hemothorax, with rightward shift of the heart and mediastinum. 3. Collapse of the left lower lobe with atelectasis in the left upper lobe and lingula. 4. Small peripheral wedge-shaped groundglass opacity in the right upper lobe wh ich could represent atelectasis, pneumonia or pulmonary infarct. 5. Scattered lytic and blastic bone lesions consistent with previously biopsy-p roven metastatic prostate cancer.
--- NOTE | ~2022-03-03 | US_ITS ---
EXAMINATION: US venous doppler [facility] DATE: 03/03/2022 11:06 INDICATION: Lower extremity swelling and erythema TECHNIQUE: Grayscale ultrasound images without and with compression and Doppler ultrasound images of the left lower extremity veins were obtained. COMPARISON: None. FINDINGS: The visualized portions of left common femoral vein, profunda (deep) femoral vein, femoral vein, popl iteal vein and greater saphenous vein outflow are patent. IMPRESSION: 1. No deep venous thrombosis in the left lower limb at the level of the thigh and knee. The veins at the left calf were unable to be assessed as the study was terminated at this point and the patient r eturned to the ED at the request of the ED physician. Reviewed, dictated and finalized at location A. IMPRESSION: 1. No deep venous thrombosis in the left lower limb at the level of the thigh and knee. The veins at the left calf were unable to be assessed as the study wa s terminated at this point and the patient returned to the ED at the request of the ED physician.
--- NOTE | 2022-03-03 08:51 | ECG_ITS ---
Measurements Intervals [place] Rate: 112 P: [place]: 0 QRS: 24 QRSD: 85 T: 27 QT: 315 QTc: 432 Interpretive Statements ATRIAL FIBRILLATION WITH RAPID VENTRICULAR RESPONSE EARLY PRECORDIAL R/S TRANSITION LOW QRS VOLTAGE IN PRECORDIAL LEADS BASELINE ARTIFACT- III ABNORMAL ECG Electronically Signed On 03-03-2022 11:26:55 CDT by Zeus Tiwari D.O.
[2022-03-03 09:05] LABS: Basophils Percent Auto 0.3 % (0.2-1.2); Eosinophils Absolute Auto 0.3 K/mm3 (0-0.3); Eosinophils Percent Auto 4.3 % (0-4.4); Hematocrit 32.7 % (42.0-52.0); Hemoglobin 9.9 g/dL (14.0-18.0); Immature Granulocyte Absolute 0.02 K/mm3 (0.00-0.031); Immature Granulocyte Percent A 0.3 % (0-0.5); Lymphocytes Absolute Auto 1.36 K/mm3 (0.9-3.2); Lymphocytes Percent Auto 18.1 % (18.3-44.2); Mean Corpuscular HGB Conc 30.3 g/dl (32-36); Mean Corpuscular Hemoglobin 25.2 pg (26-34); Mean Corpuscular Volume 83.2 fl (80-100); Mean Platelet Volume 8.4 fl (7.4-10.4); Monocytes Absolute Auto 0.6 K/mm3 (0.1-0.6); Monocytes Percent Auto 7.7 % (2.6-8.5); Neutrophils Absolute Auto 5.2 K/mm3 (1.3-6.7); Neutrophils Percent Auto 69.3 % (45.5-73.1); Platelet Count Result 275 k/mm3 (150-375); Red Blood Count 3.93 M/mm3 (4.6-6.20); White Blood Count 7.5 K/mm3 (4.5-10.0)
--- NOTE | 2022-03-03 09:10 | ED.GENADULT ---
HPI - General Adult General Chief complaint: Shortness of Breath/Dyspnea <Rosalio Garnica MD - Last Filed: 03/10/22 12:07> Stated complaint: SOB x3 Days <Rosalio Garnica MD - Last Filed: 03/10/22 12:07> Time Seen by Provider: 03/03/22 09:02 <Rosalio Garnica MD - Last Filed: 03/10/22 12:07> Source: patient <Rosalio Garnica MD - Last Filed: 03/10/22 12:07> Mode of arrival: ambulatory <Rosalio Garnica MD - Last Filed: 03/10/22 12:07> Limitations: no limitations <Rosalio Garnica MD - Last Filed: 03/10/22 12:07> History of Present Illness HPI narrative: 81-year-old male presenting to the emergency department for evaluation of worsening shortness of breath over the last week to 3 days. Patient does have history of lung cancer and colon cancer. Patient has atrial fibrillation and is on Eliquis for this. Patient also has history of lower extremity edema with a remote history of a DVT of the left lower extremity. Previous documentation by the patient's primary care physician states that the patient has not been taking his Lasix. Patient states that his lower extremity edema is worse than normal. Patient states he has been wrapping his legs. Patient did have a CT-guided biopsy in October of his left lung. Patient states he did have multiple radiation treatments of the left lung with the most recent being in December. Patient denies any acute falls or injuries. <Rosalio Garnica MD - Last Filed: 03/10/22 12:07> Related Data Home medications: Home Medications Medication Instructions Recorded Confirmed furosemide 20 mg tablet (Lasix) 20 mg PO QAM PRN SWELLING 03/10/20 03/02/22 diphenhydramine HCl 25 mg tablet 25 mg PO DAILY PRN Congestion 10/18/21 03/02/22 (Benadryl Allergy) abiraterone 250 mg tablet (Zytiga) 1,000 mg PO QAM 02/06/22 03/02/22 denosumab 120 mg/1.7 mL (70 mg/mL) 120 mg subcut ONCE 02/06/22 03/02/22 subcutaneous solution (Xgeva) leuprolide acetate (6 month) 45 mg 45 mg subcut .Q 3 months 02/06/22 03/02/22 (6 month) subcutaneous syringe (Eligard) prednisone 5 mg tablet,delayed 5 mg PO DAILY 02/06/22 03/02/22 release <Rosalio Garnica MD - Last Filed: 03/10/22 12:07> Allergies/adverse reactions: Allergies Allergy/AdvReac Type Severity Reaction Status Date / Time No Known Allergies Allergy Verified 03/02/22 12:52 <Rosalio Garnica MD - Last Filed: 03/10/22 12:07> Review of Systems Review of Systems: CONSTITUTIONAL: Denies fever, chills, or sweats. EYES: Denies visual changes, redness, or discharge. ENT: Denies rhinorrhea, congestion, sore throat, or otalgia. CARDIOVASCULAR: Denies chest pain, palpitations, or edema. RESPIRATORY: Worsening dyspnea, see HPI GASTROINTESTINAL: Denies abdominal pain, nausea, vomiting, or diarrhea. GENITOURINARY: Denies dysuria or hematuria. SKIN: Denies rash or itching. MUSCULOSKELETAL: Worsening lower extremity edema NEUROLOGIC: Denies headache, numbness, or weakness. <Rosalio Garnica MD - Last Filed: 03/10/22 12:07> [facility] Past Medical History Medical History: Medical History (Updated 03/04/22 @ 00:00 by Background Daheather) Ataxia BMI 31.0-31.9,adult BMI 32.0-32.9,adult BMI 34.0-34.9,adult BMI greater than 30 Body mass index [BMI] 36.0-36.9, adult Left cataract Left leg DVT Leg edema Lumbar pain Metastatic adenocarcinoma to prostate Nodule of left lung Osteoarthritis Osteoarthritis of left knee Squamous cell carcinoma of parotid Urinary incontinence <Rosalio Garnica MD - Last Filed: 03/10/22 12:07> Family History Family History: Family History Father Hypertension Cerebrovascular accident Patient's father is in good health Mother Hypertension Family history of heart disease in male family member before age 55 Other Diabetes mellitus <Rosalio Garnica MD - Last Filed: 03/10/22 12:07> Social History
[2022-03-03 09:15] LABS: Alanine Aminotransferase 14 U/L (6-50); Albumin Level 3.3 g/dL (3.5-5.1); Alkaline Phosphatase 174 U/L (38-126); Anion Gap 9 mmol/L (8-16); Aspartate Amino Transferase 21 U/L (17-59); Bilirubin,Total 0.8 mg/dL (0.2-1.3); Blood Urea Nitrogen 18 mg/dL (9-20); Calcium 7.8 mg/dL (8.4-10.2); Carbon Dioxide 18 mmol/L (22-30); Chloride 113 mmol/L (98-107); Estimated CRCL calculation 94 ml/min; Estimated Glomerular Filt Rate > 60; Glucose 186 mg/dL (65-110); Potassium 3.6 mmol/L (3.4-5.0); Sodium 140 mmol/L (137-145)
[2022-03-03] MEDS: FUROSEMIDE INJ 40 MG/4 ML VIAL IV PUSH (09:15)
[2022-03-03] MEDS: ALBUTEROL SULFATE NEB 2.5 MG/3 ML INH 5 MG INHALATION (09:17)
--- NOTE | 2022-03-03 09:23 | PC.NURSE ---
RT at bedside to administer breathing treatment and obtain ABG.
[2022-03-03 09:26] LABS: Alveolar/Arterial O2 Gradient 90.5 mmHg; Base Excess ABG -6.3 mEq/l (+/-2.0); Fractional Inspired Oxygen 28 %; HCO3 ABG 16.4 mEq/l (22.0-26.0); Oxygen Content ABG 13.7 %vol (16.0-22.0); Oxygen Saturation ABG 96.6 % (95.0-100.0); PCO2 ABG 24.3 mmHg (35.0-45.0); PO2 ABG 80.5 mmHg (80.0-100.0); PO2 FiO2 Ratio Arterial Blood 2.88 %; Total Hemoglobin 10.2 g/dL (12.0-18.0); pH ABG 7.447 (7.350-7.450)
[2022-03-03 09:27] LABS: Device NASAL CANNULA; Modified Allen's Test Pass; Site Drawn LEFT RADIAL
[2022-03-03 09:42] LABS: SARS-CoV-2 RNA PCR Negative
--- NOTE | 2022-03-03 09:43 | PC.NURSE ---
Patient off unit to Imaging.
[2022-03-03 09:45] LABS: NT Pro B Type Natriuretic Pept 482 pg/mL (5-100)
--- NOTE | 2022-03-03 10:14 | PC.NURSE ---
Patient in US for venous doppler.
[2022-03-03] MEDS: SODIUM CHLORIDE 0.9% IV 1,000 ML 250 ML IV CONT (11:02)
[2022-03-03] MEDS: HUMAN PROTHROMBIN COMPLEX(PCC) 5,000 UNITS in PREMIXIV 0 ML 8.4 UNITS IV CONT (11:22)
[2022-03-03 11:56] LABS: INR 1.4; Prothrombin Time 16.3 Seconds (11.1-14.7)
[2022-03-03 11:57] LABS: Partial Thromboplastin Time 31.4 SECONDS (22.3-36.8)
--- NOTE | 2022-03-03 12:30 | PC.NURSE ---
Patient's 's contact information Janine Sr [phone]
[2022-03-03] MEDS: TUBING, BLOOD PLUM PUMP TUBING 1 EACH XX (13:00)
[2022-03-03] MEDS: SODIUM CHLORIDE 0.9% IV 250 ML 30 ML IV CONT (13:00)
--- NOTE | 2022-03-03 13:56 | PC.NURSE ---
[facility] accepted transfer to [facility] rm 391 ETA [id number] Trip # [id number]
--- NOTE | 2022-03-03 14:12 | PC.NURSE ---
Urinary output of 900 ml through lin catheter.
--- NOTE | 2022-03-03 14:40 | PC.NURSE ---
Patient report provided to [facility]. All questions answered. Patient's VSS at time of transport. Patient transferred to [facility] stretcher. Blood continues to infuse as ordered. Patient transported with all belongings and chart and imaging CD to [facility] room 391 in the ICU.
== END 2022-03-03 14:53 | disposition short-term general hospital (02) ==
PROVIDERS: Emergency Provider Emergency Medicine; PCP Family Medicine
DX: J94.2 Hemothorax (principal); J90 Pleural effusion, not elsewhere classified; Z20.822 Contact with and (suspected) exposure to COVID-19; C34.92 Malignant neoplasm of unspecified part of left bronchus or lung; I48.91 Unspecified atrial fibrillation; M17.12 Unilateral primary osteoarthritis, left knee; R60.0 Localized edema; Z85.038 Personal history of other malignant neoplasm of large intestine; Z85.46 Personal history of malignant neoplasm of prostate; Z85.818 Personal history of malignant neoplasm of other sites of lip, oral cavity, and pharynx; Z86.718 Personal history of other venous thrombosis and embolism; Z79.01 Long term (current) use of anticoagulants; Z79.84 Long term (current) use of oral hypoglycemic drugs; Z87.891 Personal history of nicotine dependence; R94.31 Abnormal electrocardiogram [ECG] [EKG]
CPT/HCPCS: 36415; 36430; 36600; 51702; 71045; 71275; 80053; 82805; 83880; 85025; 85610; 85730; 86850; 86900; 86901; 86920; 87040; 93005; 93971; 94640; 96361; 96365; 96375; 99285; C9803; J1940; J7030; J7050; J7168; P9016; Q9967; U0003; U0005

== ENCOUNTER 2022-04-13 00:38 | Emergency (ER) | payer MEDICARE, OTHER, SELFPAY ==
[2022-04-13] VITALS (16 sets, daily range): BP systolic 134–176; BP diastolic 55–92; PULSE 66–100; RESP 12–28; O2SAT 94–96
--- NOTE | ~2022-04-13 | CT_ITS ---
EXAMINATION: CT brain wo con DATE: 04/13/2022 01:13 INDICATION: Status post fall. TECHNIQUE: Computed tomography (CT) of the head was performed without intravenous contrast. The dose- length product was 681.00 mGy-cm. Automated exposure control and iterative reconstruction technique w ere employed. COMPARISON: CT dated 09/15/2021 FINDINGS: There is a parenchymal hemorrhage in the right parietal/occipital lobe measuring approximat chi 4.5 cm with mass effect. There is surrounding vasogenic edema causing effacement of the occipital horn right lateral ventricle with midline shift to the left measuring approximately 2 mm. There is a 2 cm left frontal lobe mass with surrounding vasogenic edema. These findings are suspicious for meta static disease. There is intracranial atherosclerosis. 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 No depressed skull fractures. Paranasal sinuses and mastoids are pneumatized. IMPRESSION: 1. Large right posterior parietal/occipital lobe hemorrhage with surrounding vasogenic edema and mass effect. Midline shift to the left measuring 2 mm. In conjunction with 2 cm left frontal lobe mass, t his constellation of findings is suspicious for metastatic disease. Consider correlation with MRI of the brain. Reviewed, dictated and finalized at location A. IMPRESSION: 1. Large right posterior parietal/occipital lobe hemorrhage with surrounding va sogenic edema and mass effect. Midline shift to the left measuring 2 mm. In con junction with 2 cm left frontal lobe mass, this constellation of findings is licea spicious for metastatic disease. Consider correlation with MRI of the brain.
--- NOTE | 2022-04-13 00:42 | ECG_ITS ---
Measurements Intervals [place] Rate: 86 P: [place]: 0 QRS: 22 QRSD: 80 T: 45 QT: 350 QTc: 419 Interpretive Statements SINUS RHYTHM WITH FIRST DEGREE AV BLOCK BASELINE ARTIFACT- I, II, III, AVR, AVL,A VF, V1-V6 BORDERLINE ECG Electronically Signed On 04-13-2022 6:35:55 CDT by Zeus iTwari D.O.
[2022-04-13 01:11] LABS: Alanine Aminotransferase 13 U/L (6-50); Albumin Level 3.5 g/dL (3.5-5.1); Alkaline Phosphatase 152 U/L (38-126); Anion Gap 7 mmol/L (8-16); Aspartate Amino Transferase 21 U/L (17-59); Bilirubin,Total 1.1 mg/dL (0.2-1.3); Blood Urea Nitrogen 23 mg/dL (9-20); Calcium 8.4 mg/dL (8.4-10.2); Carbon Dioxide 20 mmol/L (22-30); Chloride 111 mmol/L (98-107); Estimated CRCL calculation 83 ml/min; Estimated Glomerular Filt Rate > 60; Glucose 162 mg/dL (65-110); Potassium 3.7 mmol/L (3.4-5.0); Sodium 138 mmol/L (137-145)
[2022-04-13 01:18] LABS: INR 1.6; Prothrombin Time 18.1 Seconds (11.1-14.7)
[2022-04-13 01:20] LABS: NT Pro B Type Natriuretic Pept 454 pg/mL (5-100)
--- NOTE | 2022-04-13 01:26 | ED.FALL ---
HPI - Fall General Chief Complaint: Fall Stated Complaint: FALLS Time Seen by Provider: 04/13/22 00:42 Source: patient and family Mode of arrival: EMS Limitations: no limitations History of Present Illness HPI Narrative: 81-year-old with a history of metastatic prostate CA, DVT on Eliquis was brought in from home by ambulance with complaints of multiple falls since this evening. Patient states that he was started on new medication for prostate cancer and ever since yesterday has been feeling extremely weak today was trying to get out of his recliner and fell his family called in for lift assist while EMS was trying to help him to walk he fell again. Complains of headache and mild weakness. He denies any nausea or vomiting. Related Data Home Medications Medication Instructions Recorded Confirmed furosemide 20 mg tablet (Lasix) 20 mg PO QAM PRN SWELLING 03/10/20 04/10/22 diphenhydramine HCl 25 mg tablet 25 mg PO DAILY PRN Congestion 10/18/21 04/10/22 (Benadryl Allergy) abiraterone 250 mg tablet (Zytiga) 1,000 mg PO QAM 02/06/22 04/10/22 denosumab 120 mg/1.7 mL (70 mg/mL) 120 mg subcut ONCE 02/06/22 04/10/22 subcutaneous solution (Xgeva) leuprolide acetate (6 month) 45 mg 45 mg subcut .Q 3 months 02/06/22 04/10/22 (6 month) subcutaneous syringe (Eligard) prednisone 5 mg tablet,delayed 5 mg PO DAILY 02/06/22 04/10/22 release benzonatate 100 mg capsule 100 mg PO TID PRN 03/27/22 04/10/22 calcium carbonate 500 mg calcium 500 mg PO QID 03/27/22 04/10/22 (1,250 mg) tablet ipratropium 0.5 mg-albuterol 3 mg 3 ml inhalation Q6H PRN 03/27/22 04/10/22 (2.5 mg base)/3 mL nebulization soln Allergies Allergy/AdvReac Type Severity Reaction Status Date / Time No Known Allergies Allergy Verified 04/10/22 12:31 [facility] Past Medical History Medical History Ataxia BMI 31.0-31.9,adult BMI 32.0-32.9,adult BMI 34.0-34.9,adult BMI greater than 30 Body mass index [BMI] 36.0-36.9, adult Depression, major, recurrent Insomnia Left cataract Left leg DVT Leg edema Leg edema, left Lumbar pain Memory loss Metastatic adenocarcinoma to prostate Nodule of left lung Osteoarthritis Osteoarthritis of left knee Squamous cell carcinoma of parotid Urinary incontinence Surgical History Surgical History H/O chest tube placement Family History Family History Father Hypertension Cerebrovascular accident Patient's father is in good health Mother Hypertension Family history of heart disease in male family member before age 55 Diabetes mellitus Social History Social History Smoking status: Never smoker Second hand tobacco smoke exposure: No Additional smoking assessment comments: smoked in his 20's and quit and in his 20's. 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 HEAD: Normocephalic, a small frontal hematoma on the right EYES: PERRLA and EOMI. NECK: Supple. CHEST: Clear to auscultation. No respiratory distress. HEART: Regular rate and rhythm. No murmur heard. Normal peripheral pulses. ABDOMEN: Soft, nontender, nondistended, normal active bowel sounds. EXTREMITIES: Normal range of motion. No edema. SKIN: Warm, dry, no rash. NEURO: No focal deficits. Alert and oriented x3. PSYCH: Normal mood and affect. Course Course Emergency Course: Patient still continues to have headache I did give him IV morphine I have reviewed CT scan which shows intracerebral ble
[2022-04-13] MEDS: MORPHINE SULFATE (*CRX) 4 MG/ML INJ IV PUSH (01:40)
[2022-04-13] MEDS: levETIRAcetam 1000MG/NACL100ML 1,000 MG/100 ML BAG 400 MG IVPB (01:55)
[2022-04-13 02:11] LABS: Basophils Percent Auto 0.1 % (0.2-1.2); Eosinophils Absolute Auto 0.3 K/mm3 (0-0.3); Eosinophils Percent Auto 2.9 % (0-4.4); Hemoglobin 10.2 g/dL (14.0-18.0); Immature Granulocyte Absolute 0.05 K/mm3 (0.00-0.031); Immature Granulocyte Percent A 0.5 % (0-0.5); Lymphocytes Absolute Auto 0.78 K/mm3 (0.9-3.2); Lymphocytes Percent Auto 8.4 % (18.3-44.2); Mean Corpuscular HGB Conc 30.9 g/dl (32-36); Mean Corpuscular Hemoglobin 24.9 pg (26-34); Mean Corpuscular Volume 80.7 fl (80-100); Monocytes Absolute Auto 0.5 K/mm3 (0.1-0.6); Monocytes Percent Auto 5.7 % (2.6-8.5); Neutrophils Absolute Auto 7.7 K/mm3 (1.3-6.7); Neutrophils Percent Auto 82.4 % (45.5-73.1); Platelet Count Result 242 k/mm3 (150-375); Red Blood Count 4.09 M/mm3 (4.6-6.20); White Blood Count 9.3 K/mm3 (4.5-10.0)
[2022-04-13] MEDS: ONDANSETRON INJ 4 MG/2 ML VIAL IV PUSH (02:29)
== END 2022-04-13 02:30 | disposition short-term general hospital (02) ==
PROVIDERS: Emergency Provider Family Medicine; PCP Family Medicine
DX: S06.2X0A Diffuse traumatic brain injury without loss of consciousness, initial encounter (principal); C80.1 Malignant (primary) neoplasm, unspecified; C79.82 Secondary malignant neoplasm of genital organs; E11.9 Type 2 diabetes mellitus without complications; I10 Essential (primary) hypertension; E78.2 Mixed hyperlipidemia; Z86.718 Personal history of other venous thrombosis and embolism; Z79.01 Long term (current) use of anticoagulants; Z79.899 Other long term (current) drug therapy; Z79.84 Long term (current) use of oral hypoglycemic drugs; W19.XXXA Unspecified fall, initial encounter
CPT/HCPCS: 36415; 70450; 80053; 83880; 85025; 85610; 93005; 96365; 96375; 99291; J0131; J1100; J1953; J2270; J2405